=== PATIENT | female | born 1995 | race Caucasian/White ===

== ENCOUNTER 2021-10-18 09:38 | Outpatient (CLI) | payer OTHER, SELFPAY ==
--- NOTE | ~2021-10-18 | US_ITS ---
EXAMINATION: US pelvic complete w TV DATE: 10/18/2021 10:18 INDICATION: Pelvic pain. TECHNIQUE: Multiple transabdominal and transvaginal sonographic images of the pelvis were obtained. COMPARISON: None. FINDINGS: TRANSABDOMINAL ULTRASOUND: The uterus measures 7.1 x 3.5 x 2.9 cm. There is no free fluid in the pelvis. TRANSVAGINAL ULTRASOUND: The endometrial complex measures 7 mm in thickness. The right ovary measures 2.2 x 2.4 x 1.6 cm. The left ovary measures 1.9 x 2.7 x 2.3 cm. There is normal vascular flow in the ovaries. IMPRESSION: 1. Intrauterine device in expected position. Reviewed, dictated and finalized at location A.
== END 2021-10-18 09:39 | disposition home or self-care (01) ==
PROVIDERS: PCP Obstetrics & Gynecology; Visit Provider Obstetrics & Gynecology
DX: R10.2 Pelvic and perineal pain (principal); Z97.5 Presence of (intrauterine) contraceptive device
CPT/HCPCS: 76830; 76856

== ENCOUNTER 2022-01-15 11:29 | Outpatient (CLI) | payer OTHER, SELFPAY ==
--- NOTE | ~2022-01-15 | US_ITS ---
EXAMINATION: US pelvic complete w TV DATE: 01/15/2022 12:14 INDICATION: Right adnexal pain Comparison:10/18/2021 TECHNIQUE: Multiple transabdominal and endovaginal sonographic images of the pelvis performed. FINDINGS: The uterus measures 7.2 x 3 x 4 cm. The endometrial complex measures 5 mm. The right ovary measures 2.7 x 2 x 3 cm and the left ovary measures 3.4 x 2.4 x 2.5 cm. There are sm all follicles in each ovary. Normal doppler signal in both ovaries. There is no free fluid in the pelvis. There are no abnormal masses seen on either side. IMPRESSION: 1. Unremarkable pelvic ultrasound. Reviewed, dictated and finalized at location A. AWAY ATTENDANT
== END 2022-01-15 11:30 | disposition home or self-care (01) ==
PROVIDERS: PCP Obstetrics & Gynecology; Visit Provider Obstetrics & Gynecology
DX: R10.2 Pelvic and perineal pain (principal)
CPT/HCPCS: 76830; 76856

== ENCOUNTER 2023-04-16 10:51 | Emergency (ER) | payer OTHER, SELFPAY ==
[2023-04-16 10:54] VITALS: BP 117/90; PULSE 69; RESP 16; TEMP 36.9; O2SAT 100
--- NOTE | 2023-04-16 11:32 | ECG_ITS ---
Measurements Intervals [place] Rate: 69 P: 48 NM: 142 QRS: 52 QRSD: 97 T: 42 QT: 392 QTc: 420 Interpretive Statements SINUS RHYTHM LOW QRS VOLTAGE IN PRECORDIAL LEADS [QRS DEFLECTION < 1.0 mV IN CHEST LEADS] NO PREVIOUS ECG AVAILABLE FOR COMPARISON Electronically Signed On 04-16-2023 15:48:32 BUSINESS INTELLIGENCE ADMINISTRATOR by Heidy Peng M.D.
--- NOTE | 2023-04-16 11:32 | ED.SYNCOPE ---
HPI - Syncope General Chief Complaint: Syncope Stated Complaint: SYNCOPAL EVENT Time Seen by Provider: 04/16/23 11:13 History of Present Illness HPI narrative: 27-year-old female with history of anxiety depression, LMP 1 week ago, reports for evaluation for syncopal episode that occurred today. 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 She stood up to go walk to the nurse to get her vitals checked when she felt nauseous, developed a headache, became lightheaded and her body felt heavy. States she sat down and then passed out in the nurse's lap. She denied head her head , no injuries acquired. She is unsure how long she was out. She denies reported seizure activity. states that currently, her hands and feet feel very heavy her body feels fatigued. She denies double vision or loss of visions, focal numbness or weakness, chest pain or shortness of breath, dysuria hematuria, abdominal pain, nausea vomiting, diarrhea. She has never had a syncopal episode before. No prior cardiac history. Related Data Home Medications Medication Instructions Recorded Confirmed citalopram 20 mg tablet 20 mg PO DAILY 01/15/22 levonorgestrel-ethinyl estradiol 1 tablet PO DAILY 02/27/22 0.1 mg-20 mcg tablet (Vienva) Allergies Allergy/AdvReac Type Severity Reaction Status Date / Time metoclopramide [From Reglan] Allergy Severe faint Verified 04/16/23 11:39 Sulfa (Sulfonamide Allergy Severe Swelling Verified 04/16/23 11:39 Antibiotics) of Lip/Tongue/Throat Review of Systems Review of Systems: CONSTITUTIONAL: Denies fever, chills, or sweats. EYES: Denies visual changes, redness, or discharge. ENT: Denies rhinorrhea, congestion, sore throat, or otalgia. CARDIOVASCULAR: Denies chest pain, palpitations, or edema. RESPIRATORY: Denies cough or dyspnea. GASTROINTESTINAL: Denies abdominal pain, nausea, vomiting, or diarrhea. GENITOURINARY: Denies dysuria or hematuria. SKIN: Denies rash or itching. MUSCULOSKELETAL: Denies back pain, joint pain, or myalgia. NEUROLOGIC: Denies headache, numbness, or weakness. PSYCHIATRIC: Denies anxiety or depression. [facility] Past Medical History Medical History Anxiety Depression Encounter for IUD removal Surgical History Surgical History H/O eye surgery History of hip surgery Family History Family History Other Bipolar disorder Diabetes mellitus Epilepsia Social History Social History Smoking status: Never smoker Alcohol intake: current Alcohol use details: socially Substance use: never Substance use type: does not use Living arrangements: with family Occupation/Education: occupation Additional occupation/education comments: [employer] Gender identity (if verbalized by the patient): Female Sexual Orientation (if Verbalized by the Patient): Straight or Heterosexual Exam Narrative: GENERAL: Well-appearing, well-nourished, and in no acute distress. HEAD: Normocephalic, atraumatic. EYES: PERRLA and EOMI. ENT: Nares clear, no rhinorrhea or epistaxis. Mucous membranes moist. NECK: Supple. CHEST: Clear to auscultation. No respiratory distress. HEART: Regular rate and rhythm. No murmur heard. Normal peripheral pulses. ABDOMEN: Soft, nontender, nondistended, normal active bowel sounds. EXTREMITIES: Normal range of motion. No edema. SKIN: Warm, dry, no rash. NEURO: No focal deficits. Alert and oriented x3. Cranial nerves 2-12 intact. Strength 5/5 in BUE and BLE. Sensation intact throughout. Normal [id number]. No pronator drift. Course Vital Signs Vital signs: Vital Signs Temperature 98.5 F 04/16/23 10:54 Pulse Rate 6
[2023-04-16] MEDS: SODIUM CHLORIDE 0.9% IV 1,000 ML 999 ML IV CONT (11:47)
[2023-04-16] MEDS: PROCHLORPERAZINE EDISYLATE 10 MG/2 ML VIAL IV PUSH (11:48)
[2023-04-16] MEDS: ACETAMINOPHEN 500 MG TABLET 1000 MG PO (11:48)
[2023-04-16] MEDS: diphenhydrAMINE HCl INJ 50 MG/ML VIAL 25 MG IV PUSH (11:48)
[2023-04-16 11:49] LABS: Basophils Absolute Auto 0.1 K/mm3 (0.0-0.1); Basophils Percent Auto 1.7 % (0.2-1.2); Eosinophils Absolute Auto 0.7 K/mm3 (0-0.3); Eosinophils Percent Auto 8.3 % (0-4.4); Hemoglobin 13.7 g/dL (12.0-15.0); Immature Granulocyte Absolute 0.02 K/mm3 (0.00-0.031); Immature Granulocyte Percent A 0.3 % (0-0.5); Lymphocytes Absolute Auto 2.44 K/mm3 (0.9-3.2); Lymphocytes Percent Auto 31.1 % (18.3-44.2); Mean Corpuscular HGB Conc 33.4 g/dl (32-36); Mean Corpuscular Hemoglobin 30.6 pg (26-34); Mean Corpuscular Volume 91.5 fl (80-100); Mean Platelet Volume 9.4 fl (7.4-10.4); Monocytes Absolute Auto 0.6 K/mm3 (0.1-0.6); Monocytes Percent Auto 7.1 % (2.6-8.5); Neutrophils Percent Auto 51.5 % (45.5-73.1); Platelet Count Result 288 k/mm3 (150-375); Red Blood Count 4.48 M/mm3 (4.2-5.4); Red Cell Distribution Width 12.4 % (11.5-14.5); White Blood Count 7.8 K/mm3 (4.5-10.0)
[2023-04-16 11:55] VITALS: BP 127/83; PULSE 73; RESP 16; O2SAT 100
[2023-04-16 12:03] LABS: Alanine Aminotransferase 16 U/L (6-35); Albumin Level 4.4 g/dL (3.5-5.1); Alkaline Phosphatase 88 U/L (38-126); Anion Gap 6 mmol/L (8-16); Aspartate Amino Transferase 25 U/L (14-36); Bilirubin,Total 0.3 mg/dL (0.2-1.3); Blood Urea Nitrogen 12 mg/dL (7-17); Calcium 8.9 mg/dL (8.4-10.2); Carbon Dioxide 24 mmol/L (22-30); Chloride 107 mmol/L (98-107); Estimated CRCL calculation 108 ml/min; Estimated Glomerular Filt Rate > 60; Glucose 95 mg/dL (65-110); Potassium 3.9 mmol/L (3.4-5.0); Sodium 137 mmol/L (137-145)
[2023-04-16 12:15] VITALS: BP 115/82; PULSE 66; RESP 19; O2SAT 100
[2023-04-16 12:58] VITALS: BP 112/72; PULSE 66; RESP 22; O2SAT 100
[2023-04-16 13:07] LABS: SPREG INTERNAL CONTROL Positive; Serum Qual hCG Negative
[2023-04-16 13:20] LABS: Appearance Urine Clear (Clear); Bilirubin Urine Negative (Negative); Blood Urine Negative (Negative); Color Urine Yellow (Yellow); Glucose Urine UA Negative (Negative); Ketones Urine Negative (Negative); Leukocyte Esterase Ur Negative LEU/UL (Negative); Nitrate Urine Negative (Negative); Protein Urine Negative (Negative); Specific Grav Ur 1.008 (1.001-1.035); Urobilinogen Urine 0.2 mg/dL (<2.0)
[2023-04-16 13:25] LABS: Add Urine Microscopic? NO
[2023-04-16 13:26] VITALS: BP 118/79; PULSE 94; RESP 24; TEMP 36.8; O2SAT 100
== END 2023-04-16 13:29 | disposition home or self-care (01) ==
PROVIDERS: Emergency Provider Physician Assistant
DX: R55 Syncope and collapse (principal); F32.A Depression, unspecified; F41.9 Anxiety disorder, unspecified
CPT/HCPCS: 36415; 80053; 81003; 81025; 84703; 85025; 93005; 96361; 96374; 96375; 99284; A9270; J0780; J1200; J7030

== ENCOUNTER 2024-01-15 10:55 | Emergency (ER) | payer OTHER, SELFPAY ==
--- NOTE | ~2024-01-15 | US_ITS ---
EXAMINATION: US right upper quadrant DATE: 01/15/2024 13:35 INDICATION: Epigastric pain TECHNIQUE: Multiple grayscale and Doppler ultrasound images of the abdomen were obtained. COMPARISON: None FINDINGS: The pancreatic head and body are normal in appearance. The pancreatic tail is not visualized. Visual ized proximal to mid aorta and inferior vena cava are normal. Liver has normal echogenicity and conto ur, with a smooth surface. No liver lesion identified. No intrahepatic biliary duct dilation suspecte d. Portal venous flow was seen in the hepatopetal, normal direction and has normal Doppler waveform. The gallbladder is normal in appearance. There is no cholelithiasis. The common bile duct measures 3 mm, which is normal. Sonographic Jimenez sign was reported as negative by the corporate sales manager. IMPRESSION: 1. Normal right upper quadrant ultrasound. Reviewed, dictated and finalized at location A. MAN
--- NOTE | ~2024-01-15 | CT_ITS ---
EXAMINATION: CT abdomen pelvis w con DATE: 01/15/2024 12:12 INDICATION: Abdominal pain and leukocytosis TECHNIQUE: Computed tomography (CT) of the abdomen and pelvis was performed with 100 mL Omnipaque-350 intravenous contrast. Automated exposure control and iterative reconstruction technique were employe d. The dose-length product was 517.60 mGy-cm. COMPARISON: None FINDINGS: Lung bases are clear. Heart size is normal. No pericardial or pleural effusion. Small sliding-type hi atal hernia. Liver, gallbladder, spleen, pancreas, bilateral adrenal glands and kidneys are normal. B ladder, uterus and bilateral adnexa are unremarkable. Bowels including the appendix are normal no wal l thickening or obstruction. Small amount of likely physiologic free fluid in the cul-de-sac. Subtle 8 x 5 mm soft tissue density at the junction of the perirectal fat in the right side of the free flui d in the cul-de-sac. No pathologically enlarged abdominal or pelvic lymphadenopathy. Bones are unrema rkable. IMPRESSION: 1. 8 x 5 mm soft tissue density at the junction of the perirectal fat and a small amount of free flui d in the cul-de-sac. Differential would include a mildly prominent perirectal lymph node, endometrios is/endometrioma or peritoneal implant in the setting of a prior malignancy. 2. Small sliding-type hiatal hernia. Reviewed, dictated and finalized at location A. TH AND PHYSICAL EDUCATION TEACHER IMPRESSION: 1. 8 x 5 mm soft tissue density at the junction of the perirectal fat and a sma ll amount of free fluid in the cul-de-sac. Differential would include a mildly prominent perirectal lymph node, endometriosis/endometrioma or peritoneal impla nt in the setting of a prior malignancy. 2. Small sliding-type hiatal hernia.
[2024-01-15 10:59] VITALS: BP 133/93; PULSE 70; RESP 18; TEMP 36.4; O2SAT 100
--- NOTE | 2024-01-15 11:05 | PC.NURSE ---
RUQ and RLQ tender to palpation.
[2024-01-15 11:19] LABS: BEDSIDEPREGUCG Negative (Negative)
[2024-01-15 11:27] LABS: Hematocrit 41.3 % (37.0-47.0); Hemoglobin 14.2 g/dL (12.0-15.0); Mean Corpuscular HGB Conc 34.4 g/dl (32-36); Mean Corpuscular Hemoglobin 30.8 pg (26-34); Mean Corpuscular Volume 89.6 fl (80-100); Mean Platelet Volume 9.2 fl (7.4-10.4); Platelet Count Result 314 k/mm3 (150-375); Red Blood Count 4.61 M/mm3 (4.2-5.4); Red Cell Distribution Width 12.6 % (11.5-14.5); White Blood Count 16.5 K/mm3 (4.5-10.0)
[2024-01-15 11:37] LABS: Alanine Aminotransferase 19 U/L (6-35); Albumin Level 4.4 g/dL (3.5-5.1); Alkaline Phosphatase 102 U/L (38-126); Anion Gap 9 mmol/L (4-12); Aspartate Amino Transferase 25 U/L (14-36); Bilirubin,Total 0.6 mg/dL (0.2-1.3); Blood Urea Nitrogen 11 mg/dL (7-17); Carbon Dioxide 23 mmol/L (22-30); Chloride 105 mmol/L (98-107); Estimated CRCL calculation 124 ml/min; Estimated Glomerular Filt Rate > 60; Glucose 96 mg/dL (65-110); Lipase 129 U/L (23-300); Sodium 137 mmol/L (137-145)
[2024-01-15 11:42] LABS: Add Urine Microscopic? YES; Appearance Urine Cloudy (Clear); Bacteria Urine 4+ /hpf; Bilirubin Urine Negative (Negative); Blood Urine 1+ (Negative); Color Urine Yellow (Yellow); Glucose Urine UA Negative (Negative); Ketones Urine Negative (Negative); Leukocyte Esterase Ur Negative LEU/UL (Negative); Need Manual Microscopic Reviewed; Nitrate Urine Negative (Negative); Protein Urine Negative (Negative); RBC Urine 21-50 /hpf (0-2); Specific Grav Ur 1.008 (1.001-1.035); Squamous Epithelial Cell Urine Many /hpf (Few); Urobilinogen Urine 0.2 mg/dL (<2.0)
[2024-01-15 11:51] LABS: Band Neutrophils Percent 0 % (0-6); Eosinophils Absolute Manual 5.77 K/mm3 (0.02-0.50); Eosinophils Percent Manual 35 % (0-4); Lymphocytes Absolute Manual 4.78 K/mm3 (1.1-4.5); Lymphocytes Percent Manual 29 % (18-44); Monocytes Absolute Manual 0.82 K/mm3 (0.1-0.90); Monocytes Percent Manual 5 % (3-9); Neutrophils Absolute Manual 5.11 K/mm3 (1.7-7.2); Neutrophils Percent Manual 31 % (46-73); Platelet Estimate Adequate (Adequate); Schistocytes None Seen; Total Cells Counted 100
--- NOTE | 2024-01-15 12:02 | ED_ITS ---
HPI - Abdominal Pain General Chief Complaint: Abdominal Pain Stated Complaint: abd pain Time Seen by Provider: 01/15/24 11:48 Source: patient Mode of arrival: ambulatory Limitations: no limitations History of Present Illness HPI narrative: This is a 28-year-old female that presents to the emergency department for e pigastric abdominal pain. Ongoing since yesterday. Associated with nausea. Worse after eating. Reports some diarrhea that is not unusual for her. Denies fevers, vomiting, dysuria, or hematuria. Related Data Home Medications Medication Instructions Recorded Confirmed citalopram 20 mg tablet 20 mg PO DAILY 01/15/22 levonorgestrel-ethinyl estradiol 1 tablet PO DAILY 02/27/22 0.1 mg-20 mcg tablet (Vienva) Allergies Allergy/AdvReac Type Severity Reaction Status Date / Time metoclopramide [From Reglan] Allergy Severe faint Verified 01/15/24 10:56 Sulfa (Sulfonamide Allergy Severe Swelling Verified 01/15/24 10:56 Antibiotics) of Lip/Tongue/Throat Review of Systems Review of Systems: CONSTITUTIONAL: Denies fever GASTROINTESTINAL: Reports abdominal pain, nausea. Denies vomiting GENITOURINARY: Denies dysuria or hematuria. All systems reviewed & are unremarkable except as noted in HPI and below PMFSH Past Medical History Medical History Anxiety Depression Encounter for IUD removal Surgical History Surgical History H/O eye surgery History of hip surgery Family History Family History Other Bipolar disorder Diabetes mellitus Epilepsia Social History Social History Smoking status: Never smoker Alcohol intake: current Alcohol use details: socially Substance use: never Substance use type: does not use Living arrangements: with family Occupation/Education: occupation Additional occupation/education comments: [employer] Gender identity (if verbalized by the patient): Female Sexual Orientation (if Verbalized by the Patient): Straight or Heterosexual Exam Narrative: GENERAL: Well-appearing, well-nourished, and in no acute distress. HEAD: Normocephalic, atraumatic. EYES: EOMI. CHEST: Clear to auscultation. No respiratory distress. No wheezes rales or rhonchi HEART: Regular rate and rhythm. No murmur heard. Normal peripheral pulses. ABDOMEN: Soft, nontender,nondistended, normal active bowel sounds. Tender to palpation in epigastrium, without guarding EXTREMITIES: Normal range of motion. No edema. SKIN: Warm, dry, no rash. NEURO: No focal deficits. Alert and oriented x3. PSYCH: Normal mood and affect Course Course Emergency Course: patient and family updated on workup and agree with plan of care Vital Signs Vital signs: Vital Signs Temperature 97.5 F L 01/15/24 10:59 Pulse Rate 70 01/15/24 10:59 Respiratory Rate 18 01/15/24 10:59 Blood Pressure 133/93 H 01/15/24 10:59 Pulse Oximetry 100 01/15/24 10:59 Oxygen Delivery Room Air 01/15/24 10:59 Temperature 97.5 F L 01/15/24 10:59 Pulse Rate 71 01/15/24 14:40 Respiratory Rate 16 01/15/24 14:40 Blood Pressure 120/91 H 01/15/24 14:40 Pulse Oximetry 100 01/15/24 14:40 Oxygen Delivery Room Air 01/15/24 10:59 MDM - Abdominal Pain MDM Narrative Medical decision making narrative: patient presents to the emergency department for epigastric abdominal pain. Ongoing since yesterday. She is afebrile and nontoxic appearing. CBC with leukocytosis to 16.5. Metabolic panel and lipase without concerning findings. Urine with 6-10 white blood cells, also many squamous epithelial cells. This will be sent for culture. She has no urinary symptoms. test is negative. CT abdomen and pelvis shows a small hiatal hernia. 8 x 5 mm soft t issue density at the junction of the perirectal fat and a small amount of free fluid in the cul-de-sac. Differential would include a mildly prominent perirectal lymph node, endometriosis, or peritoneal implant. Right upper quadrant ultrasound is normal. Patient and family updated on workup and agree with plan of care. 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 She was given warnings to return to the ER Differential Diagnosis Differential diagnosis: Likely abdominal pain, endometriosis and other (gerd, biliary colic, pancreatitis, gastritis) Lab Data Attestation: I reviewed the patient's lab results. 01/15/24 11:18 01/15/24 11:18 Labs: Lab Results 01/15/24 01/15/24 Range/Units 11:16 11:18 WBC 16.5 H (4.5-10.0) K/mm3 RBC 4.61 (4.2-5.4) M/mm3 Hgb 14.2 (12.0-15.0) g/dL Hct 41.3 (37.0-47.0) % MCV 89.6 (80-100) fl MCH 30.8 (26-34) pg MCHC 34.4 (32-36) g/dl RDW 12.6 (11.5-14.5) % Plt Count 314 (150-375) k/mm3 MPV 9.2 (7.4-10.4) fl Immature Gran % (Auto) Not Reportable Neut % (Auto) Not Reportable Lymph % (Auto) Not Reportable [place] % (Auto) Not Reportable Eos % (Auto) Not Reportable Baso % (Auto) Not Reportable Lymph # (Auto) Not Reportable [place] # (Auto) Not Reportable Eos # (Auto) Not Reportable Baso # (Auto) Not Reportable Abs Immat Gran (auto) Not Reportable Absolute Neuts (auto) Not Reportable Absolute Nucleated RBC Not Reportable Total Counted 100 Neutrophils % (Manual) 31 L (46-73) % Band Neutrophils % 0 (0-6) % Lymphocytes % (Manual) 29 (18-44) % Monocytes % (Manual) 5 (3-9) % Eosinophils % (Manual) 35 H (0-4) % Nucleated RBC % Not Reportable Abs Neuts (Manual) 5.11 (1.7-7.2) K/mm3 Abs Lymphs (Manual) 4.78 H (1.1-4.5) K/mm3 Abs Monocytes (Manual) 0.82 (0.1-0.90) K/mm3 Absolute Eos (Manual) 5.77 H (0.02-0.50) K/mm3 Platelet Estimate Adequate (Adequate) Schistocytes None seen Sodium 137 (137-145) mmol/L Potassium 4.0 (3.4-5.0) mmol/L Chloride 105 (98-107) mmol/L Carbon Dioxide 23 (22-30) mmol/L Anion Gap 9 (4-12) mmol/L BUN 11 (7-17) mg/dL Creatinine 0.60 L (0.7-1.0) mg/dL Estim Creat Clear Calc 124 ml/min Estimated GFR > 60 (59 - ) Glucose 96 (65-110) mg/dL Calcium 9.0 (8.4-10.2) mg/dL Total Bilirubin 0.6 (0.2-1.3) mg/dL AST 25 (14-36) U/L ALT 19 (6-35) U/L Alkaline Phosphatase 102 (38-126) U/L Total Protein 8.0 (6.3-8.2) g/dL Albumin 4.4 (3.5-5.1) g/dL Lipase 129 (23-300) U/L Urine Color Yellow (Yellow) Urine Appearance Cloudy H (Clear) Urine pH 6.0 (5.0-9.0) Ur Specific [place] 1.008 (1.001-1.035) Urine Protein Negative (Negative) mg/dL Urine Glucose (UA) Negative (Negative) mg/dL Urine Ketones Negative (Negative) mg/dL Ur Blood (Man) 1+ H (Negative) Urine Nitrate Negative (Negative) Urine Bilirubin Negative (Negative) Urine Urobilinogen 0.2 (<2.0) mg/dL Add Ur Microanalysis Reviewed Leukocyte Esterase Rfl Negative (Negative) AGNES/UL Urine RBC 21-50 H (0-2) /hpf Urine WBC 6-10 H (0-3) /hpf Ur Squamous Epith Cells Many H (Few) /hpf Urine Bacteria 4+ H /hpf Urine Casts 3-5 POC Urine HCG, Qual Negative (Negative) Imaging Data Radiologist's impression: ITS Impressions Abdomen/Pelvis CT 01/15/24 12:20 IMPRESSION: 1. 8 x 5 mm soft tissue density at the junction of the perirectal fat and a small amount of free fluid in the cul-de-sac. Differential would include a mildly prominent perirectal lymph node, endometriosis/endometrioma or peritoneal implant in the setting of a prior malignancy. 2. Small sliding-type hiatal hernia. Upper Quadrant Ultrasound 01/15/24 13:39 IMPRESSION: 1. Normal right upper quadrant ultrasound. Critical Care Time Critical Care Time Critical Care Time: No Discharge Plan Discharge Clinical Impression: Acute epigastric pain, Pyuria, Hernia, hiatal Patient Disposition: Home, Self-Care Condition: Stable Instructions: Hiatal Hernia (ED), Abdominal Pain (ED) Additional Instructions: Return to the ER if you experience fever, abdominal pain with nausea and vomiting, you are unable to keep down liquids or solids, pain or burning with urination, blood in the urine or any other symptoms that are concerning to you Remain well hydrated. Low fat diet. Increase your Prilosec to 40 mg daily to see if this helps Follow up with your primary care doctor and/or gastroenterology You should also follow up with your prototype engineer manager. The radiologist saw a possible abnormality in your pelvis on the CT scan You had some white blood cells in your urine, but this appears to be a contamination. We will send this for a culture Prescriptions: No Action citalopram 20 mg tablet 20 mg PO DAILY levonorgestrel-ethinyl estrad [Vienva] 0.1-20 mg-mcg tablet 1 tablet PO DAILY Rx Instructions: use brand name Vienva no substitute Follow-up/Referrals: Julio Davis MD [Physician] - Debbie,RUSTAM Nelson [Primary Care Provider] -
[2024-01-15] MEDS: PANTOPRAZOLE SODIUM IV 40 MG VIAL IV PUSH (12:39)
[2024-01-15 14:40] VITALS: BP 120/91; PULSE 71; RESP 16; O2SAT 100
== END 2024-01-15 15:25 | disposition home or self-care (01) ==
PROVIDERS: Emergency Provider Physician Assistant; PCP Physician Assistant
DX: R10.13 Epigastric pain (principal); R82.81 Pyuria; K44.9 Diaphragmatic hernia without obstruction or gangrene; F41.8 Other specified anxiety disorders
CPT/HCPCS: 36415; 74177; 76705; 80053; 81001; 81025; 83690; 85025; 87086; 96374; 99284; J2470; Q9967

== ENCOUNTER 2024-08-12 12:50 | Emergency (ER) | payer OTHER, SELFPAY ==
--- NOTE | ~2024-08-12 | XR_ITS ---
XR chest 2V Ordering provider: Mane Yanez MD History: 29 years Female with . chest pain . Comparison: None. FINDINGS: MEDIASTINUM: The cardiac silhouette is not enlarged. LUNGS: No infiltrates, effusions or pneumothorax. OTHER: No free air under the diaphragm. IMPRESSION: No acute cardiopulmonary pathology. Reviewed, dictated and finalized at location A.
--- NOTE | ~2024-08-12 | CT_ITS ---
CLINICAL INDICATION: Left sided Chest pain COMPARISON: None. TECHNIQUE: Multiple contiguous axial images of the chest was performed without the administration of intravenous contrast. This CT examination was performed utilizing dose reduction techniques. DLP: 186 mGy-cm FINDINGS/OBSERVATIONS: LUNG: Incidental notation is made of a prominent azygous fissure. Trace bibasilar atelectasis (left greater than right). The lungs are otherwise clear. HEART: The heart is of normal size, without pericardial effusion. MEDIASTINUM: No pathologically enlarged or morphologically suspicious lymph nodes are identified within the medias tinum, bilateral axilla, within the soft tissues of the anterior chest wall. SOFT TISSUES OF THE CHEST: Unremarkable. BONES OF THE CHEST: No acute fracture. No lytic or blastic lesions are identified. IMPRESSION: Trace bibasilar atelectasis, left greater than right. Reviewed, dictated and finalized at location A.
--- NOTE | ~2024-08-12 | CT_ITS ---
History: Left upper extremity paresthesia PROCEDURE: CT head without contrast. COMPARISON: None TECHNIQUE: Axial imaging of the head performed from the skull base to the vertex without IV contrast. Sagittal a nd coronal reformations obtained. DLP: 681 mGy-cm FINDINGS: The ventricles are normal in size, shape and position. There is no mass, mass effect or midline shift. There is no abnormal extra-axial fluid collection or intracranial hemorrhage. Visualized paranasal sinuses are clear. The mastoid air cells are well aerated. No acute displaced fractures within the overlying cranium. Impression: No acute intracranial hemorrhage or suspicious mass effect. Reviewed, dictated and finalized at location A. Impression: No acute intracranial hemorrhage or suspicious mass effect.
[2024-08-12 12:51] VITALS: BP 131/78; PULSE 83; RESP 16; TEMP 36.6; O2SAT 100
--- NOTE | 2024-08-12 12:51 | ECG_ITS ---
Test Date: 2024-08-12 12:55:03 Measurements Intervals [place] Rate: 89 P: 56 ID: [id number] QRS: 42 QRSD: 90 T: 50 QT: 359 QTc: 437 Interpretive Statements SINUS RHYTHM LOW QRS VOLTAGE IN PRECORDIAL LEADS BORDERLINE ECG No previous ECG available for comparison Electronically Signed On 08-12-2024 12:56:37 CDT by Jalen Tabor D.O.
[2024-08-12 13:07] LABS: Basophils Absolute Auto 0.1 K/mm3 (0.0-0.1); Basophils Percent Auto 1.2 % (0.2-1.2); Eosinophils Absolute Auto 0.7 K/mm3 (0-0.3); Eosinophils Percent Auto 6.7 % (0-4.4); Hematocrit 41.3 % (37.0-47.0); Hemoglobin 13.8 g/dL (12.0-15.0); Immature Granulocyte Absolute 0.03 K/mm3 (0.00-0.031); Immature Granulocyte Percent A 0.3 % (0-0.5); Lymphocytes Absolute Auto 3.56 K/mm3 (0.9-3.2); Lymphocytes Percent Auto 33.4 % (18.3-44.2); Mean Corpuscular HGB Conc 33.4 g/dl (32-36); Mean Corpuscular Hemoglobin 29.2 pg (26-34); Mean Corpuscular Volume 87.5 fl (80-100); Mean Platelet Volume 9.2 fl (7.4-10.4); Monocytes Absolute Auto 0.9 K/mm3 (0.1-0.6); Monocytes Percent Auto 8.1 % (2.6-8.5); Neutrophils Absolute Auto 5.4 K/mm3 (1.3-6.7); Neutrophils Percent Auto 50.3 % (45.5-73.1); Platelet Count Result 328 k/mm3 (150-375); Red Blood Count 4.72 M/mm3 (4.2-5.4); White Blood Count 10.7 K/mm3 (4.5-10.0)
[2024-08-12 13:18] LABS: INR 0.9; Prothrombin Time 12.5 Seconds (11.1-14.7)
[2024-08-12 13:19] LABS: Partial Thromboplastin Time 26.3 Seconds (22.3-36.8)
[2024-08-12 13:24] LABS: Alanine Aminotransferase 21 U/L (6-35); Albumin Level 4.6 g/dL (3.5-5.1); Alkaline Phosphatase 88 U/L (38-126); Anion Gap 13 mmol/L (4-12); Aspartate Amino Transferase 29 U/L (14-36); Bilirubin,Total 0.2 mg/dL (0.2-1.3); Blood Urea Nitrogen 17 mg/dL (7-17); Calcium 9.5 mg/dL (8.4-10.2); Carbon Dioxide 18 mmol/L (22-30); Chloride 105 mmol/L (98-107); Estimated CRCL calculation 122 ml/min; Estimated Glomerular Filt Rate > 60; Glucose 94 mg/dL (65-110); Lipase 150 U/L (23-300); Potassium 3.3 mmol/L (3.4-5.0); Sodium 136 mmol/L (137-145)
[2024-08-12 13:36] LABS: Troponin I < 0.012 ng/mL (0.000-0.034)
[2024-08-12 16:34] VITALS: BP 122/85; PULSE 65; RESP 16; TEMP 36.6; O2SAT 100
[2024-08-12 16:37] VITALS: O2SAT 100
[2024-08-12 16:57] LABS: NT Pro B Type Natriuretic Pept 38 pg/mL (19.9-100)
--- NOTE | 2024-08-12 17:57 | ED_ITS ---
HPI - General Adult General Chief complaint: Chest Pain <Mane Yanez MD - Last Filed: 08/12/24 18:54> Stated complaint: chest pain x 1 hour radiates down the L arm <Mane Yanez MD - Last Filed: 08/12/24 18:54> Time Seen by Provider: 08/12/24 16:34 <Mane Yanez MD - Last Filed: 08/12/24 18:54> History of Present Illness HPI narrative: This is a 29-year-old female presenting ED with chief complaint of chest pain. At 11:30 a.m. while in a work meeting as he developed sharp pain on the left side of her chest. It 7 out 10 intensity and constant. It is worse when she takes a deep breath. She feels short of breath. Pain is worse with leaning forward and certain movements. She also has pins and needles in her left arm as well as tingling in her feet. Patient denies fevers, productive cough, abdominal pain, nausea vomiting or diarrhea. She has no history of DVT or PE. She has a history of anxiety and panic attacks although she says this feels different. No recent viral illness. <Mane Yanez MD - Last Filed: 08/12/24 18:54> Related Data Home medications: Home Medications ?Medication ?Instructions ?Recorded ?Confirmed ?Last Taken ?Type citalopram 20 mg tablet 20 mg PO DAILY 01/15/22 Unknown History levonorgestrel-ethinyl estradiol 1 tablet PO DAILY 02/27/22 Unknown History 0.1 mg-20 mcg tablet (Vienva) <Mane Yanez MD - Last Filed: 08/12/24 18:54> Allergies/adverse reactions: Allergies Allergy/AdvReac Type Severity Reaction Status Date / Time metoclopramide (From Reglan) Allergy Severe faint Verified 01/15/24 10:56 Sulfa (Sulfonamide Allergy Severe Swelling Verified 01/15/24 10:56 Antibiotics) of Lip/Tongue/Throat <Mane Yanez MD - Last Filed: 08/12/24 18:54> PMFSH Past Medical History Medical History: Medical History Encounter for IUD removal Anxiety Depression <Mane Yanez MD - Last Filed: 08/12/24 18:54> Surgical History Surgical History: Surgical History H/O eye surgery History of hip surgery <Mane Yanez MD - Last Filed: 08/12/24 18:54> Family History Family History: Family History Other Bipolar disorder Diabetes mellitus Epilepsia <Mane Yanez MD - Last Filed: 08/12/24 18:54> Social History Social History: Social History Smoking status: Never smoker Alcohol intake: current Alcohol use details: socially Substance use: never Substance use type: does not use Living arrangements: with family Occupation/Education: occupation Additional occupation/education comments: [employer] Gender identity (if verbalized by the patient): Female Sexual Orientation (if Verbalized by the Patient): Straight or Heterosexual <Mane Yanez MD - Last Filed: 08/12/24 18:54> Exam 2 Narrative: APPEARANCE: No apparent distress. Head: atraumatic. EYES: EOMI, NOSE: Atraumatic NECK: Trachea midline RESPIRATORY: No increased rate of breathing clear to auscultation CARDIOVASCULAR: RRR, no peripheral edema ABDOMINAL: Non-distended soft nontender MUSCULOSKELETAl: Focal exam left arm reveals no obvious deformities. [employer] strength is intact. Sensation light touch is intact. Radian ulnar pulses are intact. NEURO: Alert. Cranial nerves 2-12 grossly intact. Sensation light touch, motor function cerebellar function intact for 4 extremities. Gait exam was normal. SKIN:: Warm, dry. Normal color PSYCHIATRIC: Normal affect <Mane Yanez MD - Last Filed: 08/12/24 18:54> Course Vital Signs Vital signs: Vital Signs Temperature 97.8 F 08/12/24 12:51 Pulse Rate 83 08/12/24 12:51 Respiratory Rate 16 08/12/24 12:51 Blood Pressure 131/78 08/12/24 12:51 Pulse Oximetry 100 08/12/24 12:51 Temperature 97.9 F 08/12/24 16:34 Pulse Rate 65 08/12/24 16:34 Respiratory Rate 16 08/12/24 16:34 Blood Pressure 122/85 08/12/24 16:34 Pulse Oximetry 100 08/12/24 16:37 Oxygen Delivery Room Air 08/12/24 16:37 <Mane Yanez MD - Last Filed: 08/12/24 18:54> Vital Signs Temperature 97.8 F 08/12/24 12:51 Pulse Rate 83 08/12/24 12:51 Respiratory Rate 16 08/12/24 12:51 Blood Pressure 131/78 08/12/24 12:51 Pulse Oximetry 100 08/12/24 12:51 Temperature 97.9 F 08/12/24 16:34 Pulse Rate 65 08/12/24 16:34 Respiratory Rate 16 08/12/24 16:34 Blood Pressure 122/85 08/12/24 16:34 Pulse Oximetry 100 08/12/24 16:37 Oxygen Delivery Room Air 08/12/24 16:37 <Trever Agudelo MD - Last Filed: 08/12/24 23:48> Medical Decision Making MDM Narrative Medical decision making narrative: -Course: 29-year-old female presenting with pleuritic chest pain and left arm paresthesias. Broad workup ordered to evaluate her chest pain including basic labs, troponin x2 BNP and D-dimer. Initial laboratory studies all came back normal. EKG without evidence of ischemia. CT chest without contrast was ordered to evaluate for occult pneumonia or neoplasm. Patient given Toradol and Tylenol for possible pleurisy. Patient signed out to the oncoming physician pending her 2nd troponin and EKG, and a CT of her chest/brain If those are negative patient should be discharged with a diagnosis of pleurisy and given primary care follow-up. Patient given Neurology follow-up for the paresthesias in her left arm. -DDX includes but is not limited to: ACS pneumonia pneumothorax PE pericarditis cervical radiculopathy, MS, peripheral more than -Co-morbidities complicating care: Anxiety, depression <Mane Yanez MD - Last Filed: 08/12/24 18:54> -Course: 29-year-old female presenting with pleuritic chest pain and left arm paresthesias. Broad workup ordered to evaluate her chest pain including basic labs, troponin x2 BNP and D-dimer. Initial laboratory studies all came back normal. EKG without evidence of ischemia. CT chest without contrast was ordered to evaluate for occult pneumonia or neoplasm. Patient given Toradol and Tylenol for possible pleurisy. Patient signed out to the oncoming physician pending her 2nd troponin and EKG, and a CT of her chest/brain If those are negative patient should be discharged with a diagnosis of pleurisy and given primary care follow-up. Patient given Neurology follow-up for the paresthesias in her left arm. -DDX includes but is not limited to: ACS pneumonia pneumothorax PE pericarditis cervical radiculopathy, MS, peripheral more than -Co-morbidities complicating care: Anxiety, depression --- Patient care was signed out to me by Dr. Yanez with CT pending with anticipated disposition being discharged home with negative CT. Patient's chest CT showed trace bibasilar atelectasis. No pericardial effusion. Patient was updated on results of her workup. Patient was encouraged close follow-up with primary care physician. All questions concerns were addressed patient was comfortable the plan for discharge <Trever Agudelo MD - Last Filed: 08/12/24 23:48> Vital Signs Vital Signs: Vital Signs Temperature 97.8 F 08/12/24 12:51 Pulse Rate 83 08/12/24 12:51 Respiratory Rate 16 08/12/24 12:51 Blood Pressure 131/78 08/12/24 12:51 Pulse Oximetry 100 08/12/24 12:51 Temperature 97.9 F 08/12/24 16:34 Pulse Rate 65 08/12/24 16:34 Respiratory Rate 16 08/12/24 16:34 Blood Pressure 122/85 08/12/24 16:34 Pulse Oximetry 100 08/12/24 16:37 Oxygen Delivery Room Air 08/12/24 16:37 <Mane Yanez MD - Last Filed: 08/12/24 18:54> Vital Signs Temperature 97.8 F 08/12/24 12:51 Pulse Rate 83 08/12/24 12:51 Respiratory Rate 16 08/12/24 12:51 Blood Pressure 131/78 08/12/24 12:51 Pulse Oximetry 100 08/12/24 12:51 Temperature 97.9 F 08/12/24 16:34 Pulse Rate 65 08/12/24 16:34 Respiratory Rate 16 08/12/24 16:34 Blood Pressure 122/85 08/12/24 16:34 Pulse Oximetry 100 08/12/24 16:37 Oxygen Delivery Room Air 08/12/24 16:37 <Trever Agudelo MD - Last Filed: 08/12/24 23:48> Lab Data Result diagrams: 08/12/24 13:00 08/12/24 13:00 <Mane Yanez MD - Last Filed: 08/12/24 18:54> Labs: Lab Results 08/12/24 Range/Units 13:00 WBC 10.7 H (4.5-10.0) K/mm3 RBC 4.72 (4.2-5.4) M/mm3 Hgb 13.8 (12.0-15.0) g/dL Hct 41.3 (37.0-47.0) % MCV 87.5 (80-100) fl MCH 29.2 (26-34) pg MCHC 33.4 (32-36) g/dl RDW 12.0 (11.5-14.5) % Plt Count 328 (150-375) k/mm3 MPV 9.2 (7.4-10.4) fl Immature Gran % (Auto) 0.3 (0-0.5) % Neut % (Auto) 50.3 (45.5-73.1) % Lymph % (Auto) 33.4 (18.3-44.2) % [place] % (Auto) 8.1 (2.6-8.5) % Eos % (Auto) 6.7 H (0-4.4) % Baso % (Auto) 1.2 (0.2-1.2) % Lymph # (Auto) 3.56 H (0.9-3.2) K/mm3 [place] # (Auto) 0.9 H (0.1-0.6) K/mm3 Eos # (Auto) 0.7 H (0-0.3) K/mm3 Baso # (Auto) 0.1 (0.0-0.1) K/mm3 Abs Immat Gran (auto) 0.03 (0.00-0.031) K/mm3 Absolute Neuts (auto) 5.4 (1.3-6.7) K/mm3 Absolute Nucleated RBC 0.000 (0.0-0.012) K/mm3 Nucleated RBC % 0.0 (0.0-0.2) % PT 12.5 (11.1-14.7) Seconds INR 0.9 APTT 26.3 (22.3-36.8) Seconds D-Dimer 0.37 (<0.48) ug/mL Sodium 136 L (137-145) mmol/L Potassium 3.3 L (3.4-5.0) mmol/L Chloride 105 (98-107) mmol/L Carbon Dioxide 18 L (22-30) mmol/L Anion Gap 13 H (4-12) mmol/L BUN 17 (7-17) mg/dL Creatinine 0.63 L (0.7-1.0) mg/dL Estim Creat Clear Calc 122 ml/min Estimated GFR > 60 (59 - ) Glucose 94 (65-110) mg/dL Calcium 9.5 (8.4-10.2) mg/dL Total Bilirubin 0.2 (0.2-1.3) mg/dL AST 29 (14-36) U/L ALT 21 (6-35) U/L Alkaline Phosphatase 88 (38-126) U/L Troponin I < 0.012 (0.000-0.034) ng/mL NT-Pro-B Natriuret Pep 38 (19.9-100) pg/mL Total Protein 8.0 (6.3-8.2) g/dL Albumin 4.6 (3.5-5.1) g/dL Lipase 150 (23-300) U/L <Mane Yanez MD - Last Filed: 08/12/24 18:54> Lab Results 08/12/24 Range/Units 13:00 WBC 10.7 H (4.5-10.0) K/mm3 RBC 4.72 (4.2-5.4) M/mm3 Hgb 13.8 (12.0-15.0) g/dL Hct 41.3 (37.0-47.0) % MCV 87.5 (80-100) fl MCH 29.2 (26-34) pg MCHC 33.4 (32-36) g/dl RDW 12.0 (11.5-14.5) % Plt Count 328 (150-375) k/mm3 MPV 9.2 (7.4-10.4) fl Immature Gran % (Auto) 0.3 (0-0.5) % Neut % (Auto) 50.3 (45.5-73.1) % Lymph % (Auto) 33.4 (18.3-44.2) % [place] % (Auto) 8.1 (2.6-8.5) % Eos % (Auto) 6.7 H (0-4.4) % Baso % (Auto) 1.2 (0.2-1.2) % Lymph # (Auto) 3.56 H (0.9-3.2) K/mm3 [place] # (Auto) 0.9 H (0.1-0.6) K/mm3 Eos # (Auto) 0.7 H (0-0.3) K/mm3 Baso # (Auto) 0.1 (0.0-0.1) K/mm3 Abs Immat Gran (auto) 0.03 (0.00-0.031) K/mm3 Absolute Neuts (auto) 5.4 (1.3-6.7) K/mm3 Absolute Nucleated RBC 0.000 (0.0-0.012) K/mm3 Nucleated RBC % 0.0 (0.0-0.2) % PT 12.5 (11.1-14.7) Seconds INR 0.9 APTT 26.3 (22.3-36.8) Seconds D-Dimer 0.37 (<0.48) ug/mL Sodium 136 L (137-145) mmol/L Potassium 3.3 L (3.4-5.0) mmol/L Chloride 105 (98-107) mmol/L Carbon Dioxide 18 L (22-30) mmol/L Anion Gap 13 H (4-12) mmol/L BUN 17 (7-17) mg/dL Creatinine 0.63 L (0.7-1.0) mg/dL Estim Creat Clear Calc 122 ml/min Estimated GFR > 60 (59 - ) Glucose 94 (65-110) mg/dL Calcium 9.5 (8.4-10.2) mg/dL Total Bilirubin 0.2 (0.2-1.3) mg/dL AST 29 (14-36) U/L ALT 21 (6-35) U/L Alkaline Phosphatase 88 (38-126) U/L Troponin I < 0.012 (0.000-0.034) ng/mL NT-Pro-B Natriuret Pep 38 (19.9-100) pg/mL Total Protein 8.0 (6.3-8.2) g/dL Albumin 4.6 (3.5-5.1) g/dL Lipase 150 (23-300) U/L <Trever Agudelo MD - Last Filed: 08/12/24 23:48> Imaging Data Radiologist's impression: Impressions Chest X-Ray 08/12/24 13:50 IMPRESSION: No acute cardiopulmonary pathology. Head CT 08/12/24 19:08 Impression: No acute intracranial hemorrhage or suspicious mass effect. Chest CT 08/12/24 19:18 IMPRESSION: Trace bibasilar atelectasis, left greater than right. <Trever Agudelo MD - Last Filed: 08/12/24 23:48> Discharge Plan Discharge Clinical Impression: Pleurisy, Arm paresthesia, left <Mane Yanez MD - Last Filed: 08/12/24 18:54> Patient Disposition: Home <Mane Yanez MD - Last Filed: 08/12/24 18:54> Condition: Stable <Mane Yanez MD - Last Filed: 08/12/24 18:54> Instructions: Antibiotic Form, Pleurisy (DC) <Mane Yanez MD - Last Filed: 08/12/24 18:54> Additional Instructions: You were seen emergency department for chest pain and paresthesias in her left arm. Your chest pain workup was unremarkable. I suspect that you have pleurisy, inflammation of your lung lining that is causing her pain. Please take Motrin 800 mg 3 times daily. Follow-up with your primary care physician for further management. You had pins and needles in her left arm. Please follow-up with the neurologist listed below for further management. If you develop slurred speech facial droop or weakness to any extremity please return to the ED for re-evaluation. <Mane Yanez MD - Last Filed: 08/12/24 18:54> Patient Language: Ukrainian <Mane Yanez MD - Last Filed: 08/12/24 18:54> Prescriptions: No Action citalopram 20 mg tablet 20 mg PO DAILY levonorgestrel-ethinyl estrad [Vienva] 0.1-20 mg-mcg tablet 1 tablet PO DAILY Rx Instructions: use brand name Vienva no substitute <Mane Yanez MD - Last Filed: 08/12/24 18:54> Follow-up/Referrals: Debbie,RUSTAM Nelson [Primary Care Provider] - Kermit Chin MD [Physician] - 1 Week (Left arm paresthesia ) <Mane Yanez MD - Last Filed: 08/12/24 18:54>
[2024-08-12 18:11] LABS: D Dimer 0.37 ug/mL (<0.48)
[2024-08-12] MEDS: ACETAMINOPHEN 500 MG TABLET 1000 MG PO (19:57)
[2024-08-12] MEDS: KETOROLAC 15 MG/ML VIAL (*BKC) IV PUSH (19:57)
== END 2024-08-12 20:12 | disposition home or self-care (01) ==
PROVIDERS: Emergency Provider Emergency Medicine; PCP Physician Assistant
DX: R09.1 Pleurisy (principal); R20.2 Paresthesia of skin; R06.02 Shortness of breath; F41.9 Anxiety disorder, unspecified; F32.A Depression, unspecified; Z79.899 Other long term (current) drug therapy; Z79.3 Long term (current) use of hormonal contraceptives; R94.31 Abnormal electrocardiogram [ECG] [EKG]
CPT/HCPCS: 36415; 70450; 71046; 71250; 80053; 83690; 83880; 84484; 85025; 85380; 85610; 85730; 93005; 96374; 99284; A9270; J1885